=== PATIENT | female | born 1965 | race Two or more races ===

== ENCOUNTER 2017-02-21 11:48 | Day surgery (SDC) | payer OTHER ==
[~2017-02-21] VITALS: Ht 167.6 cm; Wt 61.6 kg
[2017-02-21 13:12] VITALS: Ht 167.6 cm; Wt 61.6 kg
[2017-02-21] MEDS ORDERED: BENA10TA48 PO (13:20)
[2017-02-21 14:15] VITALS: BP 128/77; PULSE 57; RESP 18
[2017-02-21] MEDS ORDERED: FENTAnyl 50 MCG/ML VIAL ONE (14:30)
[2017-02-21] MEDS ORDERED: MIDAZOLAM 1 MG/ML 2 ML INJ ONE ×2 (14:30)
[2017-02-21 14:55] VITALS: BP 109/69; RESP 20
--- NOTE | 2017-02-21 15:23 | GILP ---
DATE OF PROCEDURE: 02/21/2017 NAME OF PROCEDURE: Colonoscopy. SURGEON: Ana Silverman MD PREOPERATIVE DIAGNOSIS: Screening colonoscopy. POSTOPERATIVE DIAGNOSES: 1. Colonoscopy all the way to the cecum. Poor prep making the exam somewhat suboptimal. 2. Internal hemorrhoids. 3. No gross neoplasm was identified. INDICATION FOR THE PROCEDURE: Ms. Rylie Santana is a 51-year-old female patient who was scheduled for screening colonoscopy. The procedure and possible complications were well explained to the patient, she understood and cons ented to the procedure. DESCRIPTION OF PROCEDURE: Under the influence of fentanyl and Versed, the colonoscope was carefully introduced in the rectum and under direct vision, it was advanced all the way to the cecum. FINDINGS: The patient had somewhat poor prep making the exam somewhat suboptimal. There was no marie ss neoplasm identified. The patient was noted to have hemorrhoids. She tolerated the procedure very well and there was no complication from the procedure. At the end of the procedures, she was awake with stable vital signs and she was discharged home to the care of her family. IMPRESSION: 1. Colonoscopy all the way to the cecum. 2. Somewhat poor prep making the exam somewhat suboptimal. 3. Internal hemorrhoids. 4. No gross neoplasm was identified. PLAN: Recommend next screening colonoscopy in 5 years because of the poor prep and somewhat subopti mal nature of the examination. Dictated By: ANA SILVERMAN MD GD/NTS Conf#: [id number] DID#: [id number] CC: ANA SILVERMAN MD;*EndCC*
== END 2017-02-21 16:49 | disposition home or self-care (01) ==
LOC: GIL 11:48
PROVIDERS: ATTEND Internal Medicine Gastroenterology
DX: Z12.11 Encounter for screening for malignant neoplasm of colon (principal); K64.8 Other hemorrhoids; I10 Essential (primary) hypertension
CPT/HCPCS: 45378; J2250; J3010; Z7610